=== PATIENT | female | born 1970 | race African-American/Black ===

== ENCOUNTER 2019-03-06 23:58 | Emergency (ER) | payer OTHER ==
[~2019-03-06] VITALS: Ht 160 cm; Wt 85.7 kg
[2019-03-07 01:17] LABS: PLATELET COUNT 214 K/uL (152-353)
[2019-03-07 01:20] LABS: POTASSIUM 4.2 mmol/L (3.6-5.2)
[2019-03-07 04:00] VITALS: BP 152/63; TEMP 97.8
== END 2019-03-07 04:00 | disposition home or self-care (01) ==
LOC: ED 23:58
PROVIDERS: Emergency Medicine
DX: K82.8 Other specified diseases of gallbladder (principal)
CPT/HCPCS: 36415; 80053; 81000; 82150; 83690; 85027; 96374; 96375; 99284; J1885; J2405; Q9963

== ENCOUNTER 2019-04-10 12:35 | Emergency (ER) | payer OTHER ==
[~2019-04-10] VITALS: Ht 160 cm; Wt 85.7 kg
[2019-04-10 14:12] LABS: PLATELET COUNT 209 K/uL (152-353)
[2019-04-10 14:20] LABS: POTASSIUM 3.5 mmol/L (3.6-5.2)
[2019-04-10 15:21] VITALS: BP 156/87; TEMP 97.9
== END 2019-04-10 15:25 | disposition home or self-care (01) ==
LOC: ED 12:35
PROVIDERS: Emergency Medicine
DX: F20.89 Other schizophrenia (principal); F41.8 Other specified anxiety disorders
CPT/HCPCS: 80053; 85027; 96372; 99282; 99283; J2060

== ENCOUNTER 2019-08-04 14:20 | Emergency (ER) | payer OTHER ==
[~2019-08-04] VITALS: Ht 160 cm; Wt 90.7 kg
[2019-08-04 15:41] LABS: PLATELET COUNT 211 K/uL (152-353)
[2019-08-04 15:49] LABS: POTASSIUM 3.9 mmol/L (3.6-5.2)
[2019-08-04 19:17] VITALS: BP 148/90; TEMP 98.4
== END 2019-08-04 19:22 | disposition other institution (70) ==
LOC: ED 14:34
PROVIDERS: Emergency Medicine
DX: F20.89 Other schizophrenia (principal); R45.851 Suicidal ideations; R44.0 Auditory hallucinations; Z04.6 Encounter for general psychiatric examination, requested by authority
CPT/HCPCS: 80053; 80307; 80320; 80329; 81000; 85027; 93005; 99285; Q0177

== ENCOUNTER 2020-02-01 18:07 | Emergency (ER) | payer OTHER ==
[~2020-02-01] VITALS: Ht 160 cm; Wt 90.7 kg
[2020-02-01 18:41] LABS: PLATELET COUNT 216 K/uL (152-353)
[2020-02-01 19:01] LABS: POTASSIUM 3.8 mmol/L (3.6-5.2); SODIUM 136 mmol/L (136-145)
[2020-02-01] MEDS ORDERED: TRAZODONE HYDR100 MG PO (20:36)
[2020-02-01] MEDS ORDERED: BUSPIRONE10 MG PO (20:37)
[2020-02-01] MEDS ORDERED: BENZ1TAB43 PO (20:38)
[2020-02-01 20:52] VITALS: BP 144/72; TEMP 98.6
== END 2020-02-02 04:02 | disposition still patient (30) ==
LOC: ED 18:07
PROVIDERS: Family Medicine
DX: R45.851 Suicidal ideations (principal); R45.850 Homicidal ideations; F20.89 Other schizophrenia; Z03.818 Encounter for observation for suspected exposure to other biological agents ruled out
CPT/HCPCS: 36415; 80053; 80307; 80320; 80329; 81000; 85027; 87086; 87088; 87635; 93005; 99285; U0003

== ENCOUNTER 2020-08-23 23:15 | Emergency (ER) | payer OTHER ==
[~2020-08-23 23:15] MED LIST: BENZ1TAB43 PO; BUSPIRONE10 MG PO; TRAZODONE HYDR100 MG PO
[2020-09-03 13:35] LABS: POTASSIUM 3.4 mmol/L (3.6-5.2); SODIUM 140 mmol/L (136-145)
[2020-09-04 17:46] LABS: PLATELET COUNT 175 K/uL (152-353)
== END 2020-08-24 13:05 | disposition other institution (70) ==
LOC: ED 23:15
PROVIDERS: Family Medicine
DX: F20.0 Paranoid schizophrenia (principal); F28 Other psychotic disorder not due to a substance or known physiological condition; Z11.52 Encounter for screening for COVID-19
CPT/HCPCS: 80053; 80307; 80320; 81000; 82550; 84484; 85027; 87635; 93005; 99285; U0003

== ENCOUNTER 2020-11-29 11:01 | Outpatient (CLI) | payer OTHER | END 2020-11-29 19:04 | disposition home or self-care (01) | LOC: LABW 11:01 | PROVIDERS: ATTEND Nurse Practitioner Family | DX: R10.13 Epigastric pain (principal) ==

== ENCOUNTER 2020-12-05 16:00 | Emergency (ER) | payer OTHER ==
[~2020-12-05] VITALS: Ht 160 cm; Wt 90.7 kg
[2020-12-05 16:02] VITALS: TEMP 98.3
[2020-12-05 17:14] LABS: PLATELET COUNT 192 K/uL (152-353)
[2020-12-05 17:17] LABS: POTASSIUM 3.3 mmol/L (3.6-5.2)
[2020-12-05 18:39] VITALS: BP 148/80
== END 2020-12-05 18:45 | disposition home or self-care (01) ==
LOC: ED 16:00
PROVIDERS: Emergency Medicine Emergency Medical Services
DX: G47.09 Other insomnia (principal); E87.6 Hypokalemia
CPT/HCPCS: 80053; 80307; 81000; 81025; 83735; 85027; 96360; 99284

== ENCOUNTER 2020-12-15 11:44 | Emergency (ER) | payer OTHER ==
[~2020-12-15] VITALS: Ht 160 cm; Wt 90.7 kg
[2020-12-15 11:52] VITALS: BP 135/76; TEMP 98.5
== END 2020-12-15 12:33 | disposition home or self-care (01) ==
LOC: ED 11:44
DX: G47.09 Other insomnia (principal)
CPT/HCPCS: 99282

== ENCOUNTER 2021-01-16 07:51 | Emergency (ER) | payer OTHER ==
[~2021-01-16] VITALS: Ht 160 cm; Wt 90.7 kg
[2021-01-16 08:03] VITALS: TEMP 98.6
[2021-01-16 08:56] LABS: PLATELET COUNT 240 K/uL (152-353)
[2021-01-16 09:04] LABS: POTASSIUM 3.7 mmol/L (3.6-5.2)
[2021-01-16 11:38] VITALS: BP 144/78
== END 2021-01-16 12:04 | disposition home or self-care (01) ==
LOC: ED 07:51
PROVIDERS: Emergency Medicine Emergency Medical Services
DX: F41.8 Other specified anxiety disorders (principal); F32.89 Other specified depressive episodes
CPT/HCPCS: 80053; 80307; 81000; 81025; 85027; 99283

== ENCOUNTER 2021-02-07 15:37 | Emergency (ER) | payer OTHER ==
[~2021-02-07] VITALS: Ht 160 cm; Wt 90.7 kg
[2021-02-07 17:00] VITALS: BP 154/84; TEMP 97.6
== END 2021-02-07 17:00 | disposition home or self-care (01) ==
LOC: ED 15:37
DX: F41.0 Panic disorder [episodic paroxysmal anxiety] (principal); F20.89 Other schizophrenia
CPT/HCPCS: 99282

== ENCOUNTER 2021-02-27 11:29 | Emergency (ER) | payer OTHER ==
[~2021-02-27] VITALS: Ht 160 cm; Wt 90.7 kg
[2021-02-27 11:36] VITALS: TEMP 97.9
[2021-02-27 12:20] LABS: PLATELET COUNT 221 K/uL (152-353)
[2021-02-27 12:32] LABS: POTASSIUM 3.4 mmol/L (3.6-5.2)
[2021-02-27 12:36] VITALS: BP 118/62
== END 2021-02-27 19:49 | disposition other institution (70) ==
LOC: ED 11:29
PROVIDERS: Hospitalist
DX: F20.0 Paranoid schizophrenia (principal); Z11.52 Encounter for screening for COVID-19
CPT/HCPCS: 80053; 80307; 80320; 80329; 81000; 85027; 87635; 93005; 99283; U0003

== ENCOUNTER 2021-04-19 17:48 | Emergency (ER) | payer OTHER ==
[~2021-04-19] VITALS: Ht 160 cm; Wt 90.7 kg
[2021-04-19 17:48] VITALS: BP 145/74; TEMP 97.6
== END 2021-04-19 18:48 | disposition home or self-care (01) ==
LOC: ED 17:48
DX: F22 Delusional disorders (principal); R09.81 Nasal congestion
CPT/HCPCS: 80307; 99282

== ENCOUNTER 2021-05-21 12:11 | Emergency (ER) | payer OTHER ==
[~2021-05-21] VITALS: Ht 160 cm; Wt 90.7 kg
[2021-05-21 12:33] LABS: PLATELET COUNT 183 K/uL (152-353)
[2021-05-21 12:41] LABS: POTASSIUM 3.4 mmol/L (3.6-5.2)
[2021-05-21 13:28] VITALS: BP 149/86; TEMP 98.9
== END 2021-05-21 13:28 | disposition home or self-care (01) ==
LOC: ED 12:11
PROVIDERS: Emergency Medicine
DX: K29.60 Other gastritis without bleeding (principal)
CPT/HCPCS: 80053; 81000; 85027; 99283

== ENCOUNTER 2021-06-14 03:18 | Emergency (ER) | payer OTHER ==
[~2021-06-14] VITALS: Ht 160 cm; Wt 95.3 kg
[2021-06-14 04:04] LABS: PLATELET COUNT 175 K/uL (152-353)
[2021-06-14 04:09] LABS: POTASSIUM 4.2 mmol/L (3.6-5.2)
[2021-06-14 04:22] LABS: PARTIAL THROMBOPLASTIN TIME 24.5 SECONDS (24.5-33.6)
[2021-06-14] MEDS ORDERED: LORA5TAB2 PO (04:33)
[2021-06-14] MEDS ORDERED: ASPIRIN LOW81 MG PO (04:33)
[2021-06-14] MEDS ORDERED: MEDROL DOSEPAK4 MG PO (04:33)
[2021-06-14] MEDS ORDERED: ANTIVERT25 M1 PO (04:33)
[2021-06-14] MEDS ORDERED: LEVO250T2 PO (04:33)
[2021-06-14 05:30] VITALS: BP 118/70; TEMP 98.1
== END 2021-06-14 05:30 | disposition home or self-care (01) ==
LOC: ED 03:18
PROVIDERS: Hospitalist
DX: J32.8 Other chronic sinusitis (principal); R42 Dizziness and giddiness
CPT/HCPCS: 36415; 80053; 82550; 83880; 84484; 85027; 85610; 85730; 93005; 96372; 99283; J1885; J2930

== ENCOUNTER 2021-06-18 10:23 | Emergency (ER) | payer OTHER ==
[~2021-06-18] VITALS: Ht 160 cm; Wt 99.8 kg
[~2021-06-18 10:23] MED LIST changes: +ANTIVERT25 M1 PO; +ASPIRIN LOW81 MG PO; +LEVO250T2 PO; +LORA5TAB2 PO; +MEDROL DOSEPAK4 MG PO
[2021-06-18 12:11] VITALS: BP 162/86; TEMP 98.4
== END 2021-06-18 12:20 | disposition home or self-care (01) ==
LOC: ED 10:23
DX: F20.89 Other schizophrenia (principal)
CPT/HCPCS: 80307; 99282

== ENCOUNTER 2021-07-06 14:10 | Emergency (ER) | payer OTHER ==
[2021-07-06 14:15] VITALS: BP 159/72; TEMP 97
[2021-07-06 15:23] LABS: POTASSIUM 3.5 mmol/L (3.6-5.2)
[2021-07-06 15:26] LABS: PLATELET COUNT 240 K/uL (152-353)
== END 2021-07-06 18:04 | disposition home or self-care (01) ==
LOC: ED 14:10
PROVIDERS: Emergency Medicine
DX: R53.83 Other fatigue (principal)
CPT/HCPCS: 36415; 80053; 85027; 99283

== ENCOUNTER 2021-07-09 21:35 | Emergency (ER) | payer OTHER ==
[~2021-07-09] VITALS: Ht 160 cm; Wt 99.8 kg
[2021-07-09 21:35] VITALS: BP 163/84; TEMP 98
== END 2021-07-09 22:05 | disposition left against medical advice (07) ==
LOC: ED 21:35
DX: F20.89 Other schizophrenia (principal)
CPT/HCPCS: 99282

== ENCOUNTER 2021-08-28 19:18 | Emergency (ER) | payer OTHER ==
[~2021-08-28] VITALS: Ht 160 cm; Wt 104.3 kg
[2021-08-28 19:34] VITALS: BP 120/87; TEMP 98.2
== END 2021-08-28 21:50 | disposition home or self-care (01) ==
LOC: ED 19:18
DX: Z53.21 Procedure and treatment not carried out due to patient leaving prior to being seen by health care provider (principal); R11.0 Nausea; R53.1 Weakness
CPT/HCPCS: 99281

== ENCOUNTER 2021-10-02 10:20 | Outpatient (CLI) | payer OTHER | END 2021-10-02 19:04 | disposition home or self-care (01) | LOC: RAD 10:20 | PROVIDERS: ATTEND Nurse Practitioner Family | DX: M25.551 Pain in right hip (principal) ==

== ENCOUNTER 2022-01-24 16:23 | Emergency (ER) | payer OTHER ==
[~2022-01-24] VITALS: Ht 160 cm; Wt 104.3 kg
[2022-01-24 16:32] VITALS: BP 169/88; TEMP 98
[2022-01-24 17:05] LABS: PLATELET COUNT 192 K/uL (152-353)
[2022-01-24 17:13] LABS: POTASSIUM 3.9 mmol/L (3.6-5.2)
== END 2022-01-24 20:30 | disposition still patient (30) ==
LOC: ED 16:23
PROVIDERS: Emergency Medicine
DX: F41.8 Other specified anxiety disorders (principal); F43.9 Reaction to severe stress, unspecified; F20.89 Other schizophrenia; Z87.898 Personal history of other specified conditions
CPT/HCPCS: 80053; 80143; 80179; 80307; 80320; 81002; 85027; 87635; 93005; 99285; U0003

== ENCOUNTER 2022-02-14 16:59 | Emergency (ER) | payer OTHER ==
[~2022-02-14] VITALS: Ht 160 cm; Wt 117.9 kg
[2022-02-14 18:42] LABS: PLATELET COUNT 208 K/uL (152-353)
[2022-02-14 18:55] LABS: POTASSIUM 3.8 mmol/L (3.6-5.2)
[2022-02-14 19:35] VITALS: BP 121/78; TEMP 98.1
== END 2022-02-14 19:40 | disposition home or self-care (01) ==
LOC: ED 16:59
PROVIDERS: Emergency Medicine
DX: R53.1 Weakness (principal)
CPT/HCPCS: 36415; 80053; 81002; 85027; 99283

== ENCOUNTER 2022-02-22 11:15 | Emergency (ER) | payer OTHER ==
[~2022-02-22] VITALS: Ht 160 cm; Wt 117.9 kg
[2022-02-22 11:20] VITALS: BP 146/88; TEMP 97.9
[2022-02-22 12:18] LABS: PLATELET COUNT 178 K/uL (152-353)
[2022-02-22 12:30] LABS: POTASSIUM 3.9 mmol/L (3.6-5.2)
== END 2022-02-22 17:56 | disposition other institution (70) ==
LOC: ED 11:15
PROVIDERS: Emergency Medicine
DX: F20.89 Other schizophrenia (principal); Z11.52 Encounter for screening for COVID-19
CPT/HCPCS: 80053; 80307; 81002; 85027; 87635; 93005; 99285; U0003

== ENCOUNTER 2022-07-21 19:31 | Emergency (ER) | payer OTHER ==
[~2022-07-21] VITALS: Ht 160 cm; Wt 118.8 kg
[2022-07-21 19:31] VITALS: BP 160/89; TEMP 98.6
[2022-07-21 19:54] LABS: PLATELET COUNT 193 K/uL (152-353)
[2022-07-21 20:03] LABS: POTASSIUM 3.5 mmol/L (3.6-5.2)
== END 2022-07-21 20:41 | disposition left against medical advice (07) ==
LOC: ED 19:31
PROVIDERS: Family Medicine
DX: F31.9 Bipolar disorder, unspecified (principal); R45.4 Irritability and anger
CPT/HCPCS: 36415; 80053; 80307; 81000; 81025; 85027; 87635; 93005; 99283; U0003

== ENCOUNTER 2023-03-31 14:30 | Emergency (ER) | payer OTHER ==
[~2023-03-31] VITALS: Ht 160 cm; Wt 127.0 kg
[2023-03-31 15:11] LABS: PLATELET COUNT 193 K/uL (152-353)
[2023-03-31 15:19] LABS: POTASSIUM 3.8 mmol/L (3.6-5.2); SODIUM 141 mmol/L (136-145)
[2023-03-31 23:27] VITALS: BP 141/85; TEMP 98
== END 2023-03-31 23:27 | disposition other institution (70) ==
LOC: ED 14:30
PROVIDERS: Family Medicine
DX: Z00.8 Encounter for other general examination (principal); R45.851 Suicidal ideations; R45.850 Homicidal ideations; G47.00 Insomnia, unspecified; F29 Unspecified psychosis not due to a substance or known physiological condition; F20.89 Other schizophrenia
CPT/HCPCS: 80053; 80143; 80179; 80307; 80320; 81002; 85027; 99285